=== PATIENT | male | born 1955 | race Caucasian/White ===

== ENCOUNTER 2019-03-24 07:30 | Day surgery (SDC) | payer OTHER ==
[~2019-03-24 07:30] MED LIST: CEFAZOLIN 2 GM/50 ML (PMX) 50 ML IVPB; SOD CHLORIDE 0.9% 1,000 ML IV
[2019-03-24] MEDS: SOD CHLORIDE 0.9% 1,000 ML IV (08:23)
[2019-03-24] MEDS ORDERED: CEFAZOLIN 2 GM/50 ML (PMX) 50 ML IVPB (10:00)
[2019-03-24] MEDS ORDERED: PROPOFOL 20 ML (10:18)
[2019-03-24] MEDS ORDERED: LIDOCAINE 2% (SDV) 5 ML INJ (10:18)
[2019-03-24] MEDS ORDERED: NEOSTIGMINE 3 MG/3 ML SYRINGE ×2 (10:18→11:10)
[2019-03-24] MEDS ORDERED: ROCURONIUM 50 MG INJ (10:18)
[2019-03-24] MEDS ORDERED: GLYCOPYRROLATE 0.4 MG INJ ×3 (10:18→11:10)
[2019-03-24] MEDS ORDERED: SUCCINYLCHOLINE CHLORIDE 100 MG/5 ML SYG IV (10:18)
[2019-03-24] MEDS ORDERED: MEPERIDINE 100 MG INJ (10:19)
[2019-03-24] MEDS: CEFAZOLIN 2 GM/50 ML (PMX) 50 ML IVPB (10:41)
[2019-03-24] MEDS: BUPIVACAINE 0.5% (SDV) 30 ML INJ (10:51)
[2019-03-24] MEDS: POLYMYXIN/BACITRACIN 1L IRRIG (10:51)
[2019-03-24] MEDS ORDERED: ONDANSETRON 4 MG INJ (11:09)
[2019-03-24] MEDS ORDERED: CEFAZOLIN 1 GM INJ (11:09)
[2019-03-24] MEDS ORDERED: METOCLOPRAMIDE 10 MG INJ IV (12:30)
[2019-03-24] MEDS ORDERED: EPHEDrine 25 MG/5 ML SYG IV (12:30)
[2019-03-24] MEDS ORDERED: HYDROmorphONE 1 MG/5 ML IV SYRINGE IV (12:30)
[2019-03-24] MEDS ORDERED: MIDAZOLAM 1 MG/ML 2 ML INJ IV (12:30)
[2019-03-24] MEDS ORDERED: LABETALOL HCL 20MG INJ IV (12:30)
[2019-03-24] MEDS ORDERED: hydrALAzine 20 MG INJ IV (12:30)
[2019-03-24] MEDS ORDERED: FENTAnyl 50 MCG/ML VIAL IV ×2 (12:30)
[2019-03-24] MEDS ORDERED: ATROPINE 1 MG/10 ML SYRINGE (12:36)
[2019-03-24] MEDS: ONDANSETRON 4 MG INJ IV (12:56)
[2019-03-24] MEDS: KETOROLAC 30 MG INJ IV (12:56)
[2019-03-24] MEDS ORDERED: ONDANSETRON 4 MG INJ IV (13:00)
[2019-03-24] MEDS ORDERED: HYDROCODONE/APAP (5/325) TAB PO (13:00)
[2019-03-24] MEDS ORDERED: IBUPROFEN 600 MG TAB PO (13:00)
[2019-03-24] MEDS: MEPERIDINE 25 MG INJ IV (13:14)
[2019-03-24] MEDS: HYDROmorphONE 1 MG/5 ML IV SYRINGE IV ×2 (13:16→13:27)
[2019-03-24] MEDS: FENTAnyl 50 MCG/ML VIAL IV (13:35)
[2019-03-24] MEDS: morphine 2 MG INJ IV (13:48)
[2019-03-24] MEDS: DIPHENHYDRAMINE 50 MG INJ IV (13:53)
[2019-03-24] MEDS: HYDROCODONE/APAP (5/325) TAB PO (15:15)
== END 2019-03-24 15:34 | disposition home or self-care (01) ==
LOC: SDS 07:30
DX: K40.90 Unilateral inguinal hernia, without obstruction or gangrene, not specified as recurrent (principal); E11.9 Type 2 diabetes mellitus without complications; I10 Essential (primary) hypertension; Z79.84 Long term (current) use of oral hypoglycemic drugs
CPT/HCPCS: 49505; 82962